=== PATIENT | female | born 1995 | race Hispanic/Latino ===

== ENCOUNTER 2018-08-30 18:59 | Emergency (ER) | payer OTHER ==
[2018-08-30 20:23] LABS: APPEARANCE,URINE Clear (CLEAR); BILIRUBIN,URINE Negative (NEGATIVE); COLOR,URINE Yellow (YELLOW); GLUCOSE, URINE (UA) Negative (NEGATIVE); KETONES,URINE >=80 mg/dL (NEGATIVE); LEUKOCYTE ESTERASE ,URINE Trace (NEGATIVE); NITRATE,URINE Negative (NEGATIVE); OCCULT BLOOD,URINE Small (NEGATIVE); PROTEIN,URINE Negative (NEGATIVE)
[2018-08-30 20:27] LABS: HCG,QUAL RESULT NEGATIVE (NEGATIVE)
[2018-08-30 20:29] LABS: BACTERIA,URINE Few /HPF (None Seen)
[2018-08-30 20:30] LABS: MUCUS,URINE Few LPF (None Seen); SQUAMOUS EPITHELIAL CELL,UR Few /HPF (0-2)
[2018-08-30] MEDS ORDERED: HYDROXYZINE HCL 25 MG TABLET ONE (20:36)
== END 2018-08-30 21:04 | disposition home or self-care (01) ==
LOC: EDH 18:59
DX: F41.0 Panic disorder [episodic paroxysmal anxiety] (principal)
CPT/HCPCS: 81001; 81025